=== PATIENT | female | born 1930 | race Caucasian/White ===

== ENCOUNTER 2017-01-01 01:31 | Observation (INO) | payer MEDICARE, BC ==
[2017-01-01] MEDS ORDERED: ONDANSETRON HCL/PF 2 MG/ML VIAL IV ONE ×2 (01:58→02:49)
[2017-01-01] MEDS ORDERED: fentaNYL CITRATE/PF 50 MCG/ML AMPUL ONE (01:58)
[2017-01-01] MEDS ORDERED: fentaNYL CITRATE/PF 50 MCG/ML AMPUL IV ONE (01:58)
[2017-01-01] MEDS ORDERED: ONDANSETRON HCL/PF 2 MG/ML VIAL ONE ×2 (01:59→02:53)
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
--- OUTSIDE RECORDS SUMMARY | 2017-01-01 02:41 | XMS REPORT | Continuity of Care Document ---
:1930 Author Organization [facility] ([place]) Address [address] [place] [address] Phone [phone] Care Team Providers Name Role Phone Jose C Edouard Primary Care Provider [phone] Source Comments This disclosure is being made pursuant to the Care Everywhere program, applicable federal and state laws, and may not contain all informaitonavailable regarding this patient.[facility] ([place]) Active Allergies and Adverse Reactions Allergen Noted Date Severity Reactions Comments Sulfadoxine Urticaria (Hives) Current Medications Prescription Sig. Disp. Refills Start Date End Date Status ASPIRIN (ASPIR-81 PO) take 81 mg by Active mouth. MULTIVITS W-FE,OTHER take by mouth. Active MIN (CENTRUM PO) VALSARTAN (DIOVAN PO) take by mouth. Active TRAZODONE HCL take 100 mg by Active (TRAZODONE PO) mouth. glyBURIDE (DIABETA) 5 take 5 mg by mouth Active mg tablet every morning with breakfast. metFORMIN take 850 mg by Active (GLUCOPHAGE) 850 mg mouth 2 times daily tablet with meals. Additional 500 mg every evening PARoxetine (PAXIL) 10 take 10 mg by mouth Active mg tablet daily. simvastatin (ZOCOR) take 10 mg by mouth Active 10 mg tablet every evening. LEVOFLOXACIN take by mouth. Active (LEVAQUIN PO) ALBUTEROL INH use by inhalation. Active estradiol (VAGIFEM) insert 25 mcg Active 25 mcg vaginal insert vaginally daily. albuterol-ipratropium use 2 Puffs by 1 Inhaler 0 07/14/2009 Active (COMBIVENT) 18-103 inhalation every 6 mcg/Actuation inhaler hours. Indications: shortness of breath Active Problems Problem Noted Date Diabetes mellitus 07/23/2009 DONNA (obstructive sleep apnea) 07/23/2009 Overview: Intolerant to CPAP Morbid obesity 07/23/2009 HTN (hypertension) 07/23/2009 Hyperlipemia 07/23/2009 S/P EZEQUIEL (total abdominal hysterectomy) 07/23/2009 Degenerative arthropathy 07/23/2009 Former smoker 07/23/2009 Depression with anxiety 07/23/2009 Overview: On paxil Resolved Problems Problem Noted Date Resolved Date Pain in joint, shoulder region 03/20/2006 07/23/2009 Pain in joint, pelvic region and thigh 03/20/2006 07/23/2009 Social History Tobacco Use Types Packs/Day Years Used Date Former Smoker Comments:quit > 40 yrs ago Alcohol Use Drinks/Week oz/Week Comments No Last Filed Vital Signs Vital Sign Reading Time Taken Blood Pressure 178/72 09/08/2009 11:23 AM MEAL ATTENDANT Pulse 72 09/08/2009 11:23 AM MEAL ATTENDANT Temperature 36.9 C (98.4 F) 09/08/2009 11:23 AM MEAL ATTENDANT Respiratory Rate 16 09/08/2009 11:23 AM MEAL ATTENDANT Height 1.397 m (4' 7") 09/08/2009 11:23 AM MEAL ATTENDANT Weight 91.627 kg (202 lb) 09/08/2009 11:23 AM MEAL ATTENDANT Body Mass Index 46.95 09/08/2009 11:23 AM MEAL ATTENDANT Oxygen Saturation 97% 07/22/2009 2:02 PM CDT Plan of Care Health Maintenance Due Date Last Done Comments Hepatitis B Vaccine (1 of 3 - Primary Series) 1930 Tdap Vaccine 1941 DIABETIC: Cholesterol 1949 Diabetic: Hdl 1949 DIABETIC: Hemoglobin A1C 1949 Diabetic: Ldl 1949 DIABETIC: Microalbumin 1949 DIABETIC: Triglycerides 1949 Td Vaccine 1948 Colonoscopy 02/18/1981 Zoster Vaccine 1991 Osteoporosis Screening (DXA Bone Density) 02/20/1996 Pneumococcal Vaccine (1 of 2 - PCV13) 02/20/1996 DIABETIC: Foot Exam 03/29/2011 DIABETIC: Retinal Eye Exam 03/29/2011 Influenza Vaccine: Seasonal (#1) 05/16/2016 Results from Last 3 Months Not on file
--- OUTSIDE RECORDS SUMMARY | 2017-01-01 02:41 | XMS REPORT | Continuity of Care Document ---
:1930 Author Organization [facility] [place] [address] Care Team Providers Name Role Phone Jose C Edouard Primary Care Provider [phone] Source Comments This disclosure is being made pursuant to the [employer] program and maynot contain all information available regarding this patient.[facility] Active Allergies and Adverse Reactions Allergen Noted Date Severity Reactions Comments Sulfa Antibiotics 07/22/2014 High Hives Current Medications Be aware that medications may not be up to date as of this document. Alwaysverify current medications with the patient. Prescription Sig. Disp. Refills Start End Status Date Date albuterol (PROVENTIL Inhale into the Active HFA;VENTOLIN HFA) 108 lungs. 2 puffs 2 (90 BASE) MCG/ACT times per day and inhaler as needed, not to exceed 4 times per day aspirin 81 MG tablet Take 81 mg by Active mouth daily. Calcium Take by mouth Active Carbonate-Vitamin D daily. (CALCIUM 500 + D PO) vitamin D, Take by mouth Active cholecalciferol, daily. (VITAMIN D3) 1000 UNITS tablet vitamin B-12 Take by mouth. Active (CYANOCOBALAMIN) 1000 3 TABLETS PO DLY MCG tablet hydrochlorothiazide Take 25 mg by Active (HYDRODIURIL) 25 MG mouth daily. tablet Insulin Syringe-Needle uses 4 needles 06/09/20 Active U-100 31G X 5/16" 0.5 per day. dx 11 ML MISC 250.02 losartan (COZAAR) 100 Take 100 mg by Active MG tablet mouth daily. Multiple Take by mouth Active Vitamins-Minerals daily. (MULTIVITAMIN & MINERAL PO) traZODone (DESYREL) Take 100 mg by Active 100 MG tablet mouth daily. amLODIPine (NORVASC) 5 Take 1 tablet by 09/08/20 Active MG tablet mouth nightly. 14 escitalopram (LEXAPRO) Take 1 tablet by 10/19/19 Active 10 MG tablet mouth nightly. 13 lactulose (CHRONULAC) Take 15 mLs by 03/12/20 Active 10 GM/15ML solution mouth 2 (two) 15 times daily as needed. nortriptyline Take 1 capsule by 09/17/20 Active (PAMELOR) 10 MG mouth nightly. 14 capsule iron sucrose (VENOFER) Inject into the 06/29/20 Active 20 MG/ML injection vein daily. 5 15 DOSES OF IV IRON WITHIN 14 DAYS iron polysaccharides Take 1 capsule by 12/09/19 Active (FERREX 150) capsule mouth 2 (two) 15 times daily. albuterol (PROAIR HFA) Inhale 2 puffs 10/21/19 Active 108 (90 BASE) MCG/ACT into the lungs 4 12 inhaler (four) times daily as needed. Cholecalciferol Take 1 tablet by 08/28/20 Active (VITAMIN D3) 2000 mouth daily. 13 UNITS TABS zolpidem (AMBIEN) 10 Take 1 tablet by 01/25/20 Active MG tablet mouth nightly as 12 needed. Unclassified (UNABLE nightly. CPAP Active TO FIND) omeprazole (PRILOSEC) Take 1 capsule by 90 capsule 4 08/25/20 Active 40 MG capsule mouth every 15 morning before breakfast. B-D UF III MINI PEN USE 4 TIMES 150 each 11 11/29/19 Active NEEDLES 31G X 5 MM DAILY 16 MISC glucose blood (RELION relion prime test 100 each 09/14/20 Active PRIME TEST) test strip strip tests 2 16 times per day dx e11.65 Blood Glucose 1 each by Does 1 Device 0 09/14/20 Active Monitoring Suppl not apply route 2 16 (RELION PRIME MONITOR) (two) times THOM daily. Use with relion prime test strips twice daily. Dx e11.65 FINGERSTIX LANCETS relion lancets 100 each 09/14/20 Active MISC tests twice per 16 day. Dx e11.65 atorvastatin (LIPITOR) TAKE ONE TABLET 90 tablet 1 11/17/19 Active 40 MG tablet BY MOUTH ONCE 17 DAILY metFORMIN XR Take 1 tablet by 90 tablet 1 12/16/19 Active (GLUCOPHAGE-XR) 500 MG mouth daily. 17 24 hr tablet metFORMIN (GLUCOPHAGE) Take 1 tablet by 180 tablet 1 12/16/19 Active 850 MG tablet mouth 2 (two) 17 times daily. Blood Glucose Testing twice 1 kit 0 12/22/19 Active Monitoring Suppl daily dx e11.65 17 (ROSALIO CONTOUR NEXT MONITOR) w/Device KIT glucose blood (ROSALIO Contour next test 125 each 11 12/22/19 Active CONTOUR TEST) test strips testing 17 strip twice daily dx e11.65 Exenatide ER Inject 2 mg into 4 each 5 12/29/19 Active (BYDUREON) 2 MG the skin every 7 17 injection days. insulin NPH (HUMULIN N Injects 18 units 18 mL 5 12/29/19 Active KWIKPEN) 100 UNIT/ML in am and 45 at 17 SUPN injection - pen at bedtime dx 11.22 metFORMIN TAKE ONE TABLET 90 tablet 1 11/13/19 Discontinued (GLUCOPHAGE-XR) 500 MG BY MOUTH ONCE 16 017 24 hr tablet DAILY metFORMIN (GLUCOPHAGE) TAKE ONE TABLET 180 tablet 1 01/18/20 Discontinued 850 MG tablet BY MOUTH TWICE 16 017 DAILY BYETTA 5 MCG PEN 5 INJECT 5MCG 1.2 mL 5 09/26/20 Discontinued MCG/0.02ML injection SUBCUTANEOUSLY 16 017 BEFORE MORNING AND EVENING MEALS insulin NPH (HUMULIN N Injects 18 units 18 mL 5 10/18/19 Discontinued KWIKPEN) 100 UNIT/ML in am and 40 at 17 017 SUPN injection - pen at bedtime dx 11.22 Active Problems Problem Noted Date Type 2 diabetes mellitus with stage 3 chronic kidney disease, with 12/28/2016 long-term current use of insulin (HCC) Type 2 diabetes, controlled, with neuropathy (HCC) 12/29/2015 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) 10/05/2011 Overview: Overview: CAITLIN MARSH MD Morbid obesity (HCC) 08/27/2009 Overview: Overview: ROB UNDERWOOD CNP Mixed hyperlipidemia 06/16/2009 Overview: Overview: CAITLIN MARSH MD Essential hypertension 07/29/2005 Overview: Overview: TESSA MARTINEZ Most Recent Encounters Date Type Specialty Providers Description 12/28/2016 Office Visit Endocrinology Caitlin Marsh MD Type 2 diabetes mellitus with stage 3 chronic kidney disease, with long-term current use of insulin (HCC) (Primary Dx); Type 2 diabetes, controlled, with neuropathy (HCC); Morbid obesity, unspecifiedobesity type (HCC); Essential hypertension; Mixed hyperlipidemia 12/27/2016 Abstract Endocrinology Carolina Griffin RN 12/26/2016 Refill Family Medicine Chiara Edouard RN 12/21/2016 Ophth Exam Ophthalmology Gregory Gentile MD Type 2 diabetes mellitus without complication, with long-term current use of insulin (HCC) (Primary Dx); Pseudophakia; Myopia, bilateral; Astigmatism, bilateral 12/21/2016 Refill Endocrinology Carolina Griffin RN 12/15/2016 Refill Endocrinology Meliza Amezcua LPN 11/17/2016 Refill Endocrinology Mitzy Rankin NP 10/18/2016 Refill Endocrinology Carolina Griffin RN Immunizations Name Dates Previously Given Next Due INFLUENZA, INACTIVATED, QUADRIVALENT, 3 08/28/2015 YEARS AND older, single dose syringe/vial Influenza Split 08/13/2012,07/16/2011,08/11/2010 Pneumococcal Conjugate-13 07/22/2014 Pneumococcal Polysaccharide-23 10/16/2006 influenza Whole 07/22/2014 Social History Tobacco Use Types Packs/Day Years Used Date Former Smoker Smokeless Tobacco: Never Used Tobacco Cessation:Counseling Given: No Comments: Alcohol Use Drinks/Week oz/Week Comments Yes 0 Standard drinks or equivalent 0.0 Alcoholic Drinks/day: CURRENT ALCOHOL USER Last Filed Vital Signs Vital Sign Reading Time Taken Blood Pressure 134/56 12/28/2016 9:56 AM CDT Pulse 82 12/28/2016 9:56 AM CDT Temperature 36.2 C (97.1 F) 08/25/2015 10:10 AM NUTRITION PARTNER Respiratory Rate 12 08/25/2015 10:10 AM NUTRITION PARTNER Height 1.397 m (4' 7") 12/28/2016 9:56 AM CDT Weight 98.431 kg (217 lb) 12/28/2016 9:56 AM CDT Body Mass Index 50.44 12/28/2016 9:56 AM CDT Oxygen Saturation - - Plan of Care Patient Goal Type Goal Blood Pressure Blood Pressure below 140/90 Result Component HEMOGLOBIN A1C below 7.0 Date Type Specialty Providers Description 04/12/2017 Appointment Endocrinology Mitzy Rankin, SKATE BOARDER [address] [place] [address] [phone] (Fax) 12/22/2017 Appointment Ophthalmology Gregory Gentile MD [address] [place] [address] [phone] (Fax) Health Maintenance Due Date Last Done Comments Foot Exam 1941 Tetanus/Pertussis (1 - Tdap) 1950 Well Adult Visit 1981 Zoster Vaccine 60+ 1991 Bone Density 02/20/1996 Influenza Immunization (#1) 2016 08/28/2015, Additional history exists 07/22/2014, 08/13/2012 LAB-HgA1C 06/23/2017 12/21/2016, Additional history exists 11/07/2016, 06/21/2016 Eye (Ophthalmology) Exam 12/21/2017 12/21/2016, Additional history exists 12/21/2016, 12/21/2016 Lab-Lipids 12/21/2017 12/21/2016, 06/23/2015, 11/06/2013 Lab-Urine Microalbumin 12/21/2017 12/21/2016, 06/23/2015, 11/06/2013 Pneumococcal Low/Medium Risk Completed 07/22/2014, 65+ 10/16/2006 Results from Last 3 Months TSH (12/21/2016) Component Value Range TSH 4.11 Hemoglobin A1c (12/21/2016)Only the most recent of2 resultswithin the time period is included. Component Value Range Hemoglobin A1C 6.7 % Vitamin B12 (12/21/2016) Component Value Range Vitamin B-12 771.6 Lipid panel (12/21/2016) Component Value Range Triglycerides 104 mg/dL HDL 47 mg/dL LDL 55 mg/dL Basic metabolic panel (12/21/2016) Component Value Range eGFR, non- 41 Calcium 9.6 mg/dL Potassium, Blood 4.6 mmol/L Microalbumin / creatinine urine ratio (12/21/2016) Component Value Range Microalbumin/Creat Ratio 115.1 Creatinine, Blood (12/21/2016) Component Value Range Creatinine, Serum 1.2 mg/dL
[2017-01-01] MEDS ORDERED: HYDROmorphone HCL 1 MG/ML DISP.SYRIN IV ONE (02:50)
[2017-01-01] MEDS ORDERED: HYDROmorphone HCL 1 MG/ML DISP.SYRIN ONE (02:53)
[2017-01-01 03:04] LABS: Hematocrit 31.8 % (37.0-47.0); Hemoglobin 9.8 gm/dL (12.5-16.0); Mean Cell Volume 94.9 fl (78-100); Mean Corpuscular Hemoglobin 29.3 pg (27-31); Mean Corpuscular Hgb Conc 30.8 g/dl (32-36); Mean Platelet Volume 8.6 fl (6.0-9.5); Neutrophil # 6.3 K/mm3 (1.3-6.0); Neutrophil % 75.5 % (42-75.0); Platelet Count 259 K/mm3 (150-450); Red Blood Count 3.35 M/mm3 (4.2-5.4); White Blood Count 8.3 K/mm3 (4.0-10.5)
[2017-01-01 03:13] LABS: Prothrombin Time (Patient) 10.7 Seconds (9.4-11.4)
[2017-01-01 03:17] LABS: Albumin * 3.5 gm/dl (3.4-5.0); Anion Gap 14.6 mmol/L (6.8-13.8); BUN/Creatinine Ratio 19.2 (9.0-21.6); Bilirubin, Total 0.3 mg/dL (0.0-1.1); Ca. Corrected For Albumin 8.5 mg/dL (8.4-10.2); Calcium * 8.4 mg/dL (7.9-10.9); Carbon Dioxide 29.8 mmol/L (24-32.6); Potassium 4.4 mmol/L (3.4-4.6); Total Protein 7.1 gm/dL (6.2-8.2)
[2017-01-01 03:22] LABS: INR 1.03 INR (0.90-1.10)
--- OUTSIDE RECORDS SUMMARY | 2017-01-01 03:53 | XMS REPORT | Continuity of Care Document ---
:1930 Author Organization [facility] ([facility]) Address [address] [place] [address] Phone [phone] Care Team Providers Name Role Phone Jose C Edouard Primary Care Provider [phone] Source Comments This disclosure is being made pursuant to the Care Everywhere program, applicable federal and state laws, and may not contain all informaitonavailable regarding this patient.[facility] ([facility]) Active Allergies and Adverse Reactions Allergen Noted [...] Taken Blood Pressure 178/72 09/08/2009 11:23 AM COMMISSION SALES ASSOCIATE Pulse 72 09/08/2009 11:23 AM COMMISSION SALES ASSOCIATE Temperature 36.9 C (98.4 F) 09/08/2009 11:23 AM COMMISSION SALES ASSOCIATE Respiratory Rate 16 09/08/2009 11:23 AM COMMISSION SALES ASSOCIATE Height 1.397 m (4' 7") 09/08/2009 11:23 AM COMMISSION SALES ASSOCIATE Weight 91.627 kg (202 lb) 09/08/2009 11:23 AM COMMISSION SALES ASSOCIATE Body Mass Index 46.95 09/08/2009 11:23 AM COMMISSION SALES ASSOCIATE Oxygen Saturation 97% 07/22/2009 2:02 PM CDT [...]
--- OUTSIDE RECORDS SUMMARY | 2017-01-01 03:53 | XMS REPORT | Continuity of Care Document ---
:1930 Author Organization [facility] Address [place] [address] Care Team Providers Name Role Phone Jose C Edouard Primary Care Provider [phone] Source Comments This disclosure is being made pursuant to the [employer] program and maynot contain all information available regarding this patient.[facility] Active Allergies and Adverse Reactions Allergen Noted [...] 36.2 C (97.1 F) 08/25/2015 10:10 AM MOTION PICTURE NARRATOR Respiratory Rate 12 08/25/2015 10:10 AM MOTION PICTURE NARRATOR Height 1.397 m (4' 7") 12/28/2016 9:56 AM CDT Weight 98.431 kg (217 lb) 12/28/2016 9:56 AM CDT Body Mass Index 50.44 12/28/2016 9:56 AM CDT Oxygen Saturation - - Plan of Care Patient Goal Type Goal Blood Pressure Blood Pressure below 140/90 Result Component HEMOGLOBIN A1C below 7.0 Date Type Specialty Providers Description 04/12/2017 Appointment Endocrinology Mitzy Rankin, [employer] [address] [place] [address] [phone] (Fax) 12/22/2017 Appointment Ophthalmology Gregory Gentile MD [address] [place] [address] [phone] (Fax) Health Maintenance Due Date Last Done [...]
[2017-01-01] MEDS ORDERED: ONDANSETRON HCL/PF 2 MG/ML VIAL IV PRN (04:57)
[2017-01-01] MEDS ORDERED: ZOLPIDEM TARTRATE 10 MG TABLET PO PRN (04:58)
--- NOTE | 2017-01-01 05:24 | HP ---
Chief Complaint - Chief Complaint Date of Service: 01/01/17 Time of Service: 05:13 Chief Complaint: left shoulder pain History of Present Illness: 86 years old female adm to the hospital from ER after sustaining a fall resulting in Left humerus fracture seen on X-Ray in ER. Pt stated while standing getting ready for bed, in the process of putting on her oxygen she felt dizzy. She told her that she was dizzy and felt like she was about to fall. pt fell between bedroom doors at home injuring her left shoulder. She denies hitting her head, LOC, blurred vision, headache, palpitation and shortness of breath before and after incident. EMS was called and she was taken to [facility] ER. pt stated she would occasionally use a cane to ambulate when she is outside. PMH significant for hypertension, diabetes, hyperlipidemia and COPD ( uses oxygen 2L at home) plan o care discussed with pt she verbalized understanding and agree. - Patient's Past Medical History Patient History - Medical: Arthritis, Diabetes Type 2 Insulin Dependent, Osteoarthritis, Renal Disease, Other - DJD Patient History - Cardiac/Respiratory: COPD, Hypertension, Hyperlipidemia, Home O2 Use - 2L nasal cannula Patient History - Cancer: No Hx of Cancer Patient History - Surgical Procedures: Colonoscopy, Hysterectomy, Total Hip Replacement - right hip, Total Knee Replacement - Bilateral knee replacement Patient History - Other: None - Family History Mother Family History - Medical: , No pertinent hx Family History - Cardiac/Respiratory: Myocardial Infarction Family History - Cancer: No pertinent family hx Father Family History - Medical: , Diabetes Type 2 Insulin Dependent Family History - Cardiac/Respiratory: Myocardial Infarction Family History - Cancer: No pertinent family hx Brother Family History - Medical: , No pertinent hx Family History - Cardiac/Respiratory: No pertinent hx Family History - Cancer: Brain - Social History Living Situations: spouse Abuse History: No History of abuse Psych History: Hx of Anxiety Smoking Status: Former smoker Have you smoked in the past 12 months: No Do you dip or chew tobacco: No Alcohol Use: none Drug Use: none - Immunizations Immunizations Up to Date: Yes Hx Pneumococcal Vaccination: No History of Influenza Vaccine: No Review Of Systems (GEN) - Review of Systems Generalized/Overall Review: Present: No Symptoms Reported EENTM: Present: No Symptoms Reported Respiratory: Present: No Symptoms Reported Cardiac: Present: No Symptoms Reported Abdominal: Present: No Symptoms Reported Genitourinary: Present: No Symptoms Reported Musculoskeletal: Present: Joint Pain - left arm and shoulder Neurological: Present: No Symptoms Reported Skin: Present: No Symptoms Reported Endocrine: Present: No Symptoms Reported Immunizations: IMMUNIZATION HX Immunizations Up to Date Yes History of Influenza Vaccine No Hx Pneumococcal Vaccination No Allergies/Adverse Reactions: Allergies Allergy/AdvReac Type Severity Reaction Status Date / Time Sulfa (Sulfonamide Allergy Verified 10/10/16 15:43 Antibiotics) Home Medications: HOME MEDICATIONS Aspirin [Aspirin Enteric Coated] 81 mg PO DAILY 01/23/14 [Last Taken Unknown] Ca/D3/Mag Ox/Zinc/Bus Person/Harinder/Bor [Caltrate 600+D Plus Tab Chew] 1 each PO DAILY [Last Taken Unknown] Cholecalciferol (Vitamin D3) [Vitamin D3] 2,000 unit PO DAILY 01/23/14 [Last Taken Unknown] Cyanocobalamin [Vitamin B-12] 3,000 mcg PO DAILY 01/23/14 [Last Taken Unknown] Escitalopram Oxalate [Lexapro] 10 mg PO DAILY 01/23/14 [Last Taken Unknown] Hydrochlorothiazide 25 mg PO DAILY 01/23/14 [Last Taken Unknown] Losartan Potassium 100 mg PO DAILY 01/23/14 [Last Taken Unknown] Albuterol Sulfate [Proventil Hfa] 6.7 gm IH BID 11/28/14 [Last Taken Unknown] Insulin NPH Human Isophane [Humulin N Kwikpen] 18 unit SQ QAM 11/28/14 [Last Taken Unknown] Insulin NPH Human Isophane [Humulin N Kwikpen] 40 unit SQ HS 11/28/14 [Last Taken Unknown] Multivitamin [Multi Vitamin Daily] 1 each PO QDIPM 11/28/14 [Last Taken Unknown] Albuterol Sulfate [Albuterol Sulfate 0.63 MG/3ML] 0.63 mg IH Q4H PRN 10/10/16 [ Last Taken Unknown] Iron Aspgly&Ps/C/B12/FA/Ca/Suc [Ferrex 150 Forte Plus Capsule] 1 each PO BID [Last Taken Unknown] metFORMIN HCL [Glucophage] 850 mg PO BID 10/10/16 [Last Taken Unknown] Atorvastatin Calcium [Lipitor] 40 mg PO ONCE 01/01/17 [Last Taken Unknown] Exenatide [Byetta] 5 mcg SQ BID 01/01/17 [Last Taken Unknown] Lactulose [Enulose] 15 ml PO BID 01/01/17 [Last Taken Unknown] Nortriptyline HCl [Pamelor] 10 mg PO HS 01/01/17 [Last Taken Unknown] Zolpidem Tartrate 10 mg PO HS PRN 01/01/17 [Last Taken Unknown] amLODIPine BESYLATE [Norvasc] 5 mg PO HS 01/01/17 [Last Taken Unknown] traZODone HCL [Desyrel] 100 mg PO HS 01/01/17 [Last Taken Unknown] Exam - Exam Vital Signs: Vital Signs - Last Taken Temp 36.8 C 01/01/17 04:04 Pulse 97 01/01/17 04:04 Resp 18 01/01/17 04:04 BP 101/68 01/01/17 04:04 Pulse Ox 94 01/01/17 04:04 Constitutional: Present: Alert, Oriented x3, Cooperative, No distress, Elderly, Morbidly obese ENT Exam: Present: moist mucous membranes Eye Exam: bilateral eye: PERRL Neck: Present: full range of motion Back Exam: Present: normal inspection Breasts: Present: Exam deferred Respiratory: Present: chest non-tender, normal breath sounds, no respiratory distress, decreased breath sounds Cardiovascular/Chest: Present: normal peripheral pulses, regular rate, rhythm, no chest tenderness, no edema Peripheral Pulses: dorsalis-pedis (R): 3+, dorsalis-pedis (L): 3+, radial (R): 3 +, radial (L): 3+ Abdomen: Present: Normal bowel sounds, soft, nontender, nondistended, no rebound tenderness /Rectal: Present: Exam deferred Extremity: Present: normal inspection, no pedal edema, normal capillary refill, other - Left arm/shoulder limited range of motion Skin Exam: Present: normal color, warm/dry, no cyanosis Neurologic: Present: oriented x 3, abnormal gait Appearance: Present: appropriate appearance Eye contact: Present: cooperative, good eye contact Thoughts: Present: normal thought pattern Diagnostic Studies: Laboratory Results WBC 8.3 K/mm3 (4.0-10.5) 01/01/17 03:00 RBC 3.35 M/mm3 (4.2-5.4) L 01/01/17 03:00 Hgb 9.8 gm/dL (12.5-16.0) L 01/01/17 03:00 Hct 31.8 % (37.0-47.0) L 01/01/17 03:00 MCV 94.9 fl (78-100) 01/01/17 03:00 MCH 29.3 pg (27-31) 01/01/17 03:00 MCHC 30.8 g/dl (32-36) L 01/01/17 03:00 RDW 14.0 % (11.5-14.0) 01/01/17 03:00 Plt Count 259 K/mm3 (150-450) 01/01/17 03:00 MPV 8.6 fl (6.0-9.5) 01/01/17 03:00 Immature Gran % (Auto) 0.50 % (0.001-0.429) H 01/01/17 03:00 Immature Gran # (Auto) 0.04 K/mm3 (0.000-0.0310) H 01/01/17 03:00 Neutrophils % 75.5 % (42-75.0) H 01/01/17 03:00 Lymphocytes % 16.3 % (20-51) L 01/01/17 03:00 Monocytes % 5.7 % (0.0-9) 01/01/17 03:00 Eosinophils % 1.8 % (0.0-3.0) 01/01/17 03:00 Basophils % 0.2 % (0.0-1.0) 01/01/17 03:00 Nucleated RBC % 0.0 k/mm3 (0-1) 01/01/17 03:00 Neutrophils # 6.3 K/mm3 (1.3-6.0) H 01/01/17 03:00 Lymphocytes # 1.4 k/mm3 (1.5-3.5) L 01/01/17 03:00 Monocytes # 0.5 k/mm3 (0.0-1.0) 01/01/17 03:00 Eosinophils # 0.2 k/mm3 (0.0-0.7) 01/01/17 03:00 Absolute Basophils 0.0 k/mm3 (0.0-0.1) 01/01/17 03:00 PT 10.7 Seconds (9.4-11.4) 01/01/17 03:00 INR (Anticoag Therapy) 1.03 INR (0.90-1.10) 01/01/17 03:00 Sodium 141 mmol/L (132-142) 01/01/17 03:00 Plasma Sodium 142 mmol/L (130-142) 01/01/17 03:00 Potassium 4.4 mmol/L (3.4-4.6) 01/01/17 03:00 Chloride 101 mmol/L (97-106) 01/01/17 03:00 Carbon Dioxide 29.8 mmol/L (24-32.6) 01/01/17 03:00 Anion Gap 14.6 mmol/L (6.8-13.8) H 01/01/17 03:00 BUN 23 mg/dL (3-23) 01/01/17 03:00 Creatinine 1.20 mg/dL (0.4-1.4) 01/01/17 03:00 Est GFR (Non-Af Amer) 45 mL/min (60-130) L 01/01/17 03:00 BUN/Creatinine Ratio 19.2 (9.0-21.6) 01/01/17 03:00 Random Glucose 154 mg/dL (70-110) H 01/01/17 03:00 Calcium 8.4 mg/dL (7.9-10.9) 01/01/17 03:00 Calcium Adj for Albumin 8.5 mg/dL (8.4-10.2) 01/01/17 03:00 Total Bilirubin 0.3 mg/dL (0.0-1.1) 01/01/17 03:00 AST 19 U/L (0-48) 01/01/17 03:00 ALT 28 U/L (19-67) 01/01/17 03:00 Alkaline Phosphatase 66 U/L (50-170) 01/01/17 03:00 Total Protein 7.1 gm/dL (6.2-8.2) 01/01/17 03:00 Albumin 3.5 gm/dl (3.4-5.0) 01/01/17 03:00 Assessment/Plan - Narrative Narrative: Acute left humerus fracture: secondary to fall sustained at home and hitting he head and shoulder. Ortho consulted XRay shoulder: left humerus fracture displaced Left Posterior splint Dilaudid for pain control CT head no acute intracranial abnormality PT/OT evaluation and treatment Orthostatic vital x1 Hypertension- stable on adm BP 101/68 May resume home dose of medications Monitor vital signs Diabetes Accu-check AC+HS Resume home dose of medications consistent car diet COPD- stable Resume home medications and supplemented oxygen, pt uses home oxygen 2L nasal cannula Code status: DNR VTE ppx: SCD and ambulate Anticipate discharge 0-2 days and follow up with ortho service Time 35 minutes - Assessment/Plan (1) Left humeral fracture Problem: Acute Qualifiers: Encounter type: initial encounter Humerus Location: proximal Fracture type: closed Fracture morphology: unspecified fracture morphology Qualified Code(s): S42.202A - Unspecified fracture of upper end of left humerus, initial encounter for closed fracture (2) COPD (chronic obstructive pulmonary disease) Problem: Chronic (3) Diabetes Problem: Chronic (4) Hypertension Problem: Chronic
[2017-01-01] MEDS: HYDROmorphone HCL 1 MG/ML DISP.SYRIN IV PRN ×3 (05:53→16:50)
[2017-01-01] MEDS ORDERED: ALBUTEROL SULFATE 2.5 MG/3 ML VIAL.NEB IH SCH (07:32)
[2017-01-01] MEDS ORDERED: ALBUTEROL SULFATE 200 PUFF INHALER IH SCH (09:00)
[2017-01-01] MEDS ORDERED: ATORVASTATIN CALCIUM 40 MG TABLET PO SCH (09:00)
[2017-01-01] MEDS ORDERED: CHOLECALCIFEROL 1,000 UNIT CAPSULE PO SCH ×2 (09:00→10:00)
[2017-01-01] MEDS ORDERED: Exenatide [Byetta] 5 MCG SQ SCH (09:00)
[2017-01-01] MEDS ORDERED: INSULIN NPH HUMAN ISOPHANE 100 UNITS/ML VIAL SC SCH ×3 (09:00→21:00)
[2017-01-01] MEDS ORDERED: IRON POLYSACCHARIDE COMPLEX 1 CAP CAPSULE PO SCH ×2 (09:00→10:00)
[2017-01-01] MEDS ORDERED: ROSUVASTATIN CALCIUM 10 MG TABLET PO SCH (09:00)
[2017-01-01] MEDS ORDERED: LOSARTAN POTASSIUM 50 MG TABLET PO SCH ×2 (09:00→10:00)
[2017-01-01] MEDS ORDERED: LACTULOSE 10 G/15 ML BTL PO SCH (09:00)
[2017-01-01] MEDS ORDERED: ASPIRIN 81 MG TABLET.DR PO SCH ×2 (09:00→10:00)
[2017-01-01] MEDS ORDERED: CYANOCOBALAMIN 1,000 MCG TABLET PO SCH ×2 (09:00→10:00)
[2017-01-01] MEDS ORDERED: ESCITALOPRAM OXALATE 10 MG TAB PO SCH ×2 (09:00→10:00)
[2017-01-01] MEDS ORDERED: CALCIUM CARBONATE/VITAMIN D3 1 TAB TABLET PO SCH ×2 (09:00→10:00)
[2017-01-01] MEDS ORDERED: HYDROCHLOROTHIAZIDE 25 MG TABLET PO SCH ×2 (09:00→10:00)
[2017-01-01] MEDS ORDERED: MULTIVIT WITH IRON-MINERALS 1 TAB TABLET PO SCH (10:00)
[2017-01-01] MEDS ORDERED: ACETAMINOPHEN 325 MG TABLET PO PRN (10:22)
[2017-01-01] MEDS ORDERED: traMADol HCL 50 MG TABLET PO PRN (10:23)
[2017-01-01] MEDS ORDERED: SENNOSIDES/DOCUSATE SODIUM 1 TAB TABLET PO PRN (10:24)
[2017-01-01] MEDS ORDERED: INSULIN LISPRO 100 UNITS/ML VIAL SC SCH (12:00)
[2017-01-01] MEDS ORDERED: DEXAMETHASONE SOD PHOSPHATE 10 MG/ML VIAL IV ONE (12:11)
--- NOTE | 2017-01-01 14:18 | CONS ---
[facility] - General Date of Service: 01/01/17 Narrative: Mrs. Garcia is a 86-year-old female who was getting ready for bed when she got dizzy and fell striking her left shoulder. She is brought to emergency department found to have a displaced left surgical neck fracture with some apparent comminution of the humeral head. She has notable displacement. Secondary to her medical conditions as well as for pain control she was admitted for observation. She is resting in bed now with mild to moderate discomfort. She denies any loss of consciousness or prior shoulder injuries. She is right-handed. She lives at home with her . She has a notable history of complications with anesthesia related to a prior colonoscopy which makes her not an ideal surgical candidate. In discussing with Dr. Rodarte there is some significant concerns with having her undergo any type of anesthesia for surgical procedure. Source: patient, family, RN/MD - History of Present Illness Timing/Duration: 24 hours Severity: moderate Modifying Factors - (Worsens): Reports: movement Modifying Factors - (Improves): Reports: immobilization Associated Symptoms: denies symptoms Allergies/Adverse Reactions: Allergies Sulfa (Sulfonamide Antibiotics) Allergy (Verified 10/10/16 15:43) Home Medications: Home Medications Medication Instructions Recorded Last Taken Aspirin [Aspirin Enteric Coated] 81 mg PO DAILY 01/23/14 Unknown Ca/D3/Mag Ox/Zinc/Cleaning Professional/Harinder/Bor 1 each PO DAILY 01/23/14 Unknown [Caltrate 600+D Plus Tab Chew] Cholecalciferol (Vitamin D3) 2,000 unit PO DAILY 01/23/14 Unknown [Vitamin D3] Cyanocobalamin [Vitamin B-12] 3,000 mcg PO DAILY 01/23/14 Unknown Escitalopram Oxalate [Lexapro] 10 mg PO DAILY 01/23/14 Unknown Hydrochlorothiazide 25 mg PO DAILY 01/23/14 Unknown Losartan Potassium 100 mg PO DAILY 01/23/14 Unknown Albuterol Sulfate [Proventil Hfa] 6.7 gm IH BID 11/28/14 Unknown Insulin NPH Human Isophane 18 unit SQ QAM 11/28/14 Unknown [Humulin N Kwikpen] Insulin NPH Human Isophane 40 unit SQ HS 11/28/14 Unknown [Humulin N Kwikpen] Multivitamin [Multi Vitamin Daily] 1 each PO QDIPM 11/28/14 Unknown Albuterol Sulfate [Albuterol 0.63 mg IH Q4H PRN 12/26/16 Unknown Sulfate 0.63 MG/3ML] Iron Aspgly&Ps/C/B12/FA/Ca/Suc 1 each PO BID 10/10/16 Unknown [Ferrex 150 Forte Plus Capsule] metFORMIN HCL [Glucophage] 850 mg PO BID 10/10/16 Unknown Atorvastatin Calcium [Lipitor] 40 mg PO ONCE 01/01/17 Unknown Exenatide [Byetta] 5 mcg SQ BID 01/01/17 Unknown Lactulose [Enulose] 15 ml PO BID 01/01/17 Unknown Nortriptyline HCl [Pamelor] 10 mg PO HS 01/01/17 Unknown Zolpidem Tartrate 10 mg PO HS PRN 01/01/17 Unknown amLODIPine BESYLATE [Norvasc] 5 mg PO HS 01/01/17 Unknown traZODone HCL [Desyrel] 100 mg PO HS 01/01/17 Unknown - Patient's Past Medical History Patient History - Medical: Arthritis, Diabetes Type 2 Insulin Dependent, Osteoarthritis, Renal Disease, Other - DJD Patient History - Cardiac/Respiratory: COPD, Hypertension, Hyperlipidemia, Home O2 Use - 2L nasal cannula Patient History - Cancer: No Hx of Cancer Patient History - Surgical Procedures: Colonoscopy, Hysterectomy, Total Hip Replacement - right hip, Total Knee Replacement - Bilateral knee replacement Patient History - Other: None - Family History Mother Family History - Medical: , No pertinent hx Family History - Cardiac/Respiratory: Myocardial Infarction Family History - Cancer: No pertinent family hx Father Family History - Medical: , Diabetes Type 2 Insulin Dependent Family History - Cardiac/Respiratory: Myocardial Infarction Family History - Cancer: No pertinent family hx Brother Family History - Medical: , No pertinent hx Family History - Cardiac/Respiratory: No pertinent hx Family History - Cancer: Brain - Social History Living Situations: spouse Abuse History: No History of abuse Psych History: Hx of Anxiety Smoking Status: Former smoker Have you smoked in the past 12 months: No Do you dip or chew tobacco: No Alcohol Use: none Drug Use: none - Immunizations Immunizations Up to Date: Yes Hx Pneumococcal Vaccination: No History of Influenza Vaccine: No Medications - Medications Current Medications: Current Medications Albuterol Sulfate (Albuterol Sulfate 2.5 Mg/3 Ml) 2.5 mg IH BIDRT [facility] Stop: 01/31/17 07:33 Last Admin: 01/01/17 09:10 Dose: 2.5 mg Aspirin (Aspirin Enteric Coated) 81 mg PO DAILY [facility] Stop: 01/31/17 09:01 Last Admin: 01/01/17 10:00 Dose: 81 mg Calcium/Vitamin D (Calcarb 600 With Vitamin D) 1 tab PO DAILY [facility] Stop: 01/31/17 09:01 Last Admin: 01/01/17 10:01 Dose: 1 tab Cholecalciferol (Vitamin D) 2,000 unit PO DAILY [facility] Stop: 01/31/17 09:01 Last Admin: 01/01/17 10:05 Dose: 2,000 unit Cyanocobalamin (Vitamin B-12) 3,000 mcg PO DAILY [facility] Stop: 01/31/17 09:01 Last Admin: 01/01/17 10:04 Dose: 3,000 mcg Escitalopram Oxalate (Lexapro) 10 mg PO DAILY [facility] Stop: 01/31/17 10:01 Last Admin: 01/01/17 10:03 Dose: 10 mg Hydrochlorothiazide (Hydrodiuril) 25 mg PO DAILY [facility] Stop: 01/31/17 09:01 Last Admin: 01/01/17 10:03 Dose: 25 mg Hydromorphone HCl (Dilaudid) 0.5 mg IV Q3H PRN PRN Reason: Pain Stop: 01/31/17 04:58 Last Admin: 01/01/17 09:17 Dose: 0.5 mg Insulin Human Lispro (Humalog) 0 units SC ACINS [facility] PRN Reason: Protocol Stop: 01/31/17 12:01 Last Admin: 01/01/17 12:02 Dose: 8 units Lactulose (Enulose) 10 g PO BID [facility] Stop: 01/31/17 09:01 Last Admin: 01/01/17 09:59 Dose: 10 g Losartan Potassium (Cozaar) 100 mg PO DAILY [facility] Stop: 01/31/17 09:01 Last Admin: 01/01/17 09:59 Dose: 100 mg Exenatide [Byetta] 5 (Mcg) 5 mcg SQ BID [facility] Stop: 01/31/17 09:01 Last Admin: 01/01/17 10:06 Dose: Not Given Tramadol HCl (Ultram) 50 mg PO Q4H PRN PRN Reason: Moderate Pain Stop: 01/31/17 10:31 Last Admin: 01/01/17 12:47 Dose: 50 mg Review of Systems - Review of Systems Generalized/Overall Review: Present: No Symptoms Reported Physical Examination - Exam Narrative: Left upper extremity: She is in a sling. Sensation is intact throughout the left upper extremity. She is a palpable radial pulse. She is able to move her fingers and wrist. She has a fairly large upper arm but no lacerations, ecchymosis, abrasions. She is no gross deformity but some of this is hidden by her soft tissues. She had pain with any upper arm motion. Vital Signs: Vital Signs - Last Taken Temp 36.8 C 01/01/17 11:13 Pulse 93 01/01/17 11:13 Resp 20 01/01/17 11:13 BP 134/72 01/01/17 11:13 Pulse Ox 93 01/01/17 11:13 O2 Oxygen Delivery Method Room Air Constitutional: Present: Alert, Oriented x3 - Results and Findings: Narrative: Left shoulder films: Displaced surgical neck fracture of the left upper humerus with possible comminution of the humeral head. The humeral head is in the joint however there is anterior displacement of the shaft - Assessments/Findings (1) Left humeral fracture Diagnosis(s): I discussed with the patient as well as her and family the nature of her injury. Based on her body habitus as well as the proximal nature of the fracture is to be somewhat difficult to stabilize nonsurgically. There is significant displacement and even with an attempted reduction I don't feel a splint or brace would add any significant stabilization. We discussed that without surgery she will likely have limited function above waist level however with surgery there is significant risk to her life and per Dr. Rodarte she does not feel she is a great surgical candidate. We discussed that if she is adamant about having surgery we may have to look into transferring her to a higher level care center due to her potential risks related to surgery. For this reason I am recommending nonsurgical treatment and from an orthopedic standpoint she is stable to be discharged home. I will see her back on . She's continue with her sling. Problem: Acute Qualifiers: Encounter type: initial encounter Humerus Location: proximal Fracture type: closed Fracture alignment: displaced
[2017-01-01 14:32] VITALS: BP 121/34
--- NOTE | 2017-01-01 15:45 | DS ---
<Andree Mitchell - Last Filed: 01/01/17 21:28> Disposition: Home self-care Condition: Fair Referrals: Jovani Calixto MD [Primary Care Provider] - Problem Oriented Discharge Instructions to Patient/Family: Humerus Fracture Treated With Immobilization, [id number], Shoulder Fracture (Proximal Humerus or Glenoid)-SportsMed Additional Patient Instructions (free text): Follow-up with Dr. Bauer on 01.05.2017. Please call patient's with time of appointment. Follow-up with PCP within 1-2 weeks. Follow up with Dr. Bauer on December at 2:45 pm. Follow up with Dr. London Gonzalez/[facility] on December @ 11:15 am Prescriptions (Any new or edited meds): Ondansetron [Zofran Odt] 4 mg PO Q6H PRN #20 tab PRN Reason: Nausea And Vomiting Sennosides/Docusate Sodium [Senokot-S] 1 tab PO TID PRN #1 bottle PRN Reason: Constipation traMADol HCL [Ultram] 50 mg PO Q6H PRN #25 tablet PRN Reason: Moderate Pain Complete Home Medications List: Complete Home Medication List: Aspirin [Aspirin Enteric Coated] 81 mg PO DAILY 01/23/14 Ca/D3/Mag Ox/Zinc/Orthotic Practitioner/Harinder/Bor [Caltrate 600+D Plus Tab Chew] 1 each PO DAILY Cholecalciferol (Vitamin D3) [Vitamin D3] 2,000 unit PO DAILY 01/23/14 Cyanocobalamin [Vitamin B-12] 3,000 mcg PO DAILY 01/23/14 Escitalopram Oxalate [Lexapro] 10 mg PO DAILY 01/23/14 Hydrochlorothiazide 25 mg PO DAILY 01/23/14 Losartan Potassium 100 mg PO DAILY 01/23/14 Albuterol Sulfate [Proventil Hfa] 6.7 gm IH BID 11/28/14 Insulin NPH Human Isophane [Humulin N Kwikpen] 18 unit SQ QAM 11/28/14 Insulin NPH Human Isophane [Humulin N Kwikpen] 40 unit SQ HS 11/28/14 Multivitamin [Multi-Vitamin Daily] 1 each PO QDIPM 11/28/14 Albuterol Sulfate [Albuterol Sulfate 0.63 MG/3ML] 0.63 mg IH Q4H PRN 10/10/16 Iron Aspgly&Ps/C/B12/FA/Ca/Suc [Ferrex 150 Forte Plus Capsule] 1 each PO BID metFORMIN HCL [Glucophage] 850 mg PO BID 10/10/16 Acetaminophen [Tylenol] 650 mg PO Q6H PRN #0 tablet 01/01/17 Atorvastatin Calcium [Lipitor] 40 mg PO ONCE 01/01/17 Exenatide [Byetta] 5 mcg SQ BID 01/01/17 Lactulose [Enulose] 15 ml PO BID 01/01/17 Nortriptyline HCl [Pamelor] 10 mg PO HS 01/01/17 Ondansetron [Zofran Odt] 4 mg PO Q6H PRN #20 tab 01/01/17 Sennosides/Docusate Sodium [Senokot-S] 1 tab PO TID PRN #1 bottle 01/01/17 Zolpidem Tartrate 10 mg PO HS PRN 01/01/17 amLODIPine BESYLATE [Norvasc] 5 mg PO HS 01/01/17 traMADol HCL [Ultram] 50 mg PO Q6H PRN #25 tablet 01/01/17 traZODone HCL [Desyrel] 100 mg PO HS 01/01/17 <Dixie Rodarte - Last Filed: 01/02/17 12:18> (1) Left humeral fracture Problem: Acute Qualifiers: Encounter type: initial encounter Humerus Location: proximal Fracture type: closed Fracture alignment: displaced Description of Stay: ADMISSION DATE: 01.01.2017 DISCHARGE DATE: 01.01.2017 ADMISSION HPI: 86 years old female adm to the hospital from ER after sustaining a fall resulting in Left humerus fracture seen on X-Ray in ER. Pt stated while standing getting ready for bed, in the process of putting on her oxygen she felt dizzy. She told her that she was dizzy and felt like she was about to fall. pt fell between bedroom doors at home injuring her left shoulder. She denies hitting her head, LOC, blurred vision, headache, palpitation and shortness of breath before and after incident. EMS was called and she was taken to [facility] ER. pt stated she would occasionally use a cane to ambulate when she is outside. PMH significant for hypertension, diabetes, hyperlipidemia and COPD ( uses oxygen 2L at home) plan o care discussed with pt she verbalized understanding and agree. HOSPITAL COURSE: Patient evaluated by Orthopedic Surgeon, Dr. Bauer, during her admission and per his consult note: I discussed with the patient as well as her and family the nature of her injury. Based on her body habitus as well as the proximal nature of the fracture is to be somewhat difficult to stabilize nonsurgically. There is significant displacement and even with an attempted reduction I don't feel a splint or brace would add any significant stabilization. We discussed that without surgery she will likely have limited function above waist level however with surgery there is significant risk to her life and per Dr. Rodarte she does not feel she is a great surgical candidate. We discussed that if she is adamant about having surgery we may have to look into transferring her to a higher level care center due to her potential risks related to surgery. For this reason I am recommending nonsurgical treatment and from an orthopedic standpoint she is stable to be discharged home. I will see her back on . She's continue with her sling. Patient discharged home and instructed to follow-up with both her PCP and with Dr. Bauer. Procedures Performed: none Results and Findings: Left shoulder films: Displaced surgical neck fracture of the left upper humerus with possible comminution of the humeral head. The humeral head is in the joint however there is anterior displacement of the shaft Discharge Disposition: Home self care Discharge Activity: Other - Activity per Dr. Bauer Discharge Diet: Resume usual diet
[2017-01-01] MEDS ORDERED: traZODone HCL 50 MG TABLET PO SCH (21:00)
[2017-01-01] MEDS ORDERED: amLODIPine BESYLATE 5 MG TABLET PO SCH (21:00)
[2017-01-01] MEDS ORDERED: NORTRIPTYLINE HCL 10 MG CAPSULE PO SCH (21:00)
[2017-01-02] MEDS ORDERED: ATORVASTATIN CALCIUM 40 MG TABLET PO SCH (09:00)
[2017-01-02] MEDS ORDERED: MULTIVIT WITH IRON-MINERALS 1 TAB TABLET PO SCH (09:00)
[2017-01-02] MEDS ORDERED: INSULIN NPH HUMAN ISOPHANE 100 UNITS/ML VIAL SC SCH (09:00)
== END 2017-01-01 18:47 | disposition home health service (06) ==
LOC: ER 01:31 → MS 03:16
PROVIDERS: ADMIT Nurse Practitioner; ATTEND Internal Medicine
DX: S42.212A Unspecified displaced fracture of surgical neck of left humerus, initial encounter for closed fracture (principal); W18.39XA Other fall on same level, initial encounter; Y92.013 Bedroom of single-family (private) house as the place of occurrence of the external cause; E11.9 Type 2 diabetes mellitus without complications; Z79.4 Long term (current) use of insulin; I10 Essential (primary) hypertension; N28.9 Disorder of kidney and ureter, unspecified; J44.9 Chronic obstructive pulmonary disease, unspecified; Z87.891 Personal history of nicotine dependence; M15.9 Polyosteoarthritis, unspecified
CPT/HCPCS: 36415; 70450; 73030; 80053; 85025; 85610; 94640; 96372; 96374; 96375; 96376; 99284; G0378

== ENCOUNTER 2017-09-11 19:03 | Emergency (ER) | payer MEDICARE, BC ==
--- NOTE | 2017-09-11 19:56 | ERNOTE ---
Medical Problem HPI - Narrative Date of Service: 09/11/17 - General Chief Complaint: Diabetes Related Problem Time Seen by Provider: 09/11/17 19:52 Source: patient, RN notes reviewed Exam Limitations: no limitations - Immun/Allergies/Home Medications Immunizations: IMMUNIZATION HX Immunizations Up to Date Yes History of Influenza Vaccine Yes Hx Pneumococcal Vaccination Yes Allergies/Adverse Reactions: Allergies Sulfa (Sulfonamide Antibiotics) Allergy (Verified 09/11/17 19:18) Home Medications: HOME MEDICATIONS Aspirin [Aspirin Enteric Coated] 81 mg PO DAILY 01/23/14 [Last Taken Unknown] Ca/D3/Mag Ox/Zinc/Cardiac Cath Lab Manager/Harinder/Bor [Caltrate 600+D Plus Tab Chew] 1 each PO DAILY [Last Taken Unknown] Cholecalciferol (Vitamin D3) [Vitamin D3] 2,000 unit PO DAILY 01/23/14 [Last Taken Unknown] Cyanocobalamin [Vitamin B-12] 3,000 mcg PO DAILY 01/23/14 [Last Taken Unknown] Escitalopram Oxalate [Lexapro] 10 mg PO DAILY 01/23/14 [Last Taken Unknown] Losartan Potassium 100 mg PO DAILY 01/23/14 [Last Taken Unknown] Albuterol Sulfate [Proventil Hfa] 6.7 gm IH BID 11/28/14 [Last Taken Unknown] Insulin NPH Human Isophane [Humulin N Kwikpen] 25 unit SQ QAM 11/28/14 [Last Taken Unknown] Insulin NPH Human Isophane [Humulin N Kwikpen] 45 unit SQ HS 11/28/14 [Last Taken Unknown] Multivitamin [Multi-Vitamin Daily] 1 each PO QDIPM 11/28/14 [Last Taken Unknown] Iron Aspgly,Ps/C/B12/FA/Ca/Suc [Ferrex 150 Forte Plus Capsule] 1 each PO BID [Last Taken Unknown] metFORMIN HCL [Glucophage] 500 mg PO BID 10/10/16 [Last Taken Unknown] Acetaminophen [Tylenol] 650 mg PO Q6H PRN #0 tablet 01/01/17 [Last Taken Unknown ] Atorvastatin Calcium [Lipitor] 40 mg PO ONCE 01/01/17 [Last Taken Unknown] Lactulose [Enulose] 15 ml PO BID 01/01/17 [Last Taken Unknown] Nortriptyline HCl [Pamelor] 10 mg PO HS 01/01/17 [Last Taken Unknown] Ondansetron [Zofran Odt] 4 mg PO Q6H PRN #20 tab 01/01/17 [Last Taken Unknown] Sennosides/Docusate Sodium [Senokot-S] 1 tab PO TID PRN #1 bottle 01/01/17 [ Last Taken Unknown] Zolpidem Tartrate 10 mg PO HS PRN 01/01/17 [Last Taken Unknown] amLODIPine BESYLATE [Norvasc] 5 mg PO HS 01/01/17 [Last Taken Unknown] traMADol HCL [Ultram] 50 mg PO Q6H PRN #25 tablet 01/01/17 [Last Taken Unknown] traZODone HCL [Desyrel] 100 mg PO HS 01/01/17 [Last Taken Unknown] Cephalexin 500 mg PO TID #30 tab 09/11/17 [Last Taken Unknown] - History of Present History Narrative: 87 year old female brought to the ED from home by her for elevated blood sugars. She sees her doctor that manages her diabetes in [place], [place] next week. She is supposed to start checking her blood sugars twice a day a few days prior to her appointment. Today she checked her blood glucose at 1730 and got a reading over 400. She reports being more thirsty than usual and having urinary frequency for the past couple of weeks. She has not had any recent illness. Date (Duration): 09/22/17 Time (Timing): 17:30 Review of Systems - Review of Systems Constitutional: Present: fatigue. Absent: recent illness, fever, chills EYE: Present: no symptoms reported ENT: Absent: nose congestion, sore throat Respiratory: Absent: shortness of breath, cough, wheezing Cardiology: Absent: chest pain, syncope Gastrointestinal/Abdominal: Absent: nausea, abdominal pain, eating less, drinking less Genitourinary: Present: frequency. Absent: pain, dysuria, hematuria Musculoskeletal: Present: muscle pain, joint pain - chronic Skin: Absent: rash, lesions, lumps Neurological: Absent: headache, dizziness/light-headedness, weakness Endocrine: Present: increased thirst, increased urine. Absent: unexplained weight loss Hematologic/Lymphatic: Absent: easy bruising, easy bleeding Psych: Present: no symptoms reported - Patient's Past Medical History Patient History - Medical: Arthritis, Diabetes Type 2 Insulin Dependent, Obesity , Osteoarthritis, Renal Disease Patient History - Cardiac/Respiratory: COPD, Hypertension, Hyperlipidemia, Home O2 Use Patient History - Cancer: No Hx of Cancer Patient History - Surgical Procedures: Colonoscopy, Hysterectomy, Total Hip Replacement, Total Knee Replacement Patient History - Other: None LMP (females 10-50): Menopausal - Family History Mother Family History - Medical: , No pertinent hx Family History - Cardiac/Respiratory: Myocardial Infarction Family History - Cancer: No pertinent family hx Father Family History - Medical: , Diabetes Type 2 Insulin Dependent Family History - Cardiac/Respiratory: Myocardial Infarction Family History - Cancer: No pertinent family hx Brother Family History - Medical: , No pertinent hx Family History - Cardiac/Respiratory: No pertinent hx Family History - Cancer: Brain - Social History Living Situations: spouse Abuse History: No History of abuse Psych History: Hx of Anxiety Smoking Status: Never smoker Alcohol Use: none Drug Use: none - Immunizations Immunizations Up to Date: Yes Hx Pneumococcal Vaccination: Yes History of Influenza Vaccine: Yes Physical Exam - Physical Exam General Appearance: Present: alert, no apparent distress, obese, other - Pleasant, appropriately dressed and groomed Head Exam: Present: normal inspection Eye Exam: Normal inspection: bilateral Ears, Nose, Throat: Present: normal ENT inspection, normal pharynx Neck: Present: normal inspection, nontender, supple Respiratory: Present: no respiratory distress, normal breath sounds, lungs clear , accessory muscle use - dyspneic with minimal exertion, on home O2, reports that her breathing is not worse than normal Cardiovascular/Chest: Present: regular rate, rhythm, no murmur Gastrointestinal/Abdominal: Present: nondistended, soft Extremity Exam: Present: normal inspection, non-tender Neurological Exam: Present: alert, oriented, normal mood/affect, no motor/ sensory deficits Skin Exam: Present: normal color, warm/dry ED Progress - Results and Orders Patient's Lab Results:: I have reviewed the patient's lab results. - Vital Signs Patient's Vital Signs:: I have reviewed the patient's vital signs. Vital Signs: Vital Signs 09/11/17 19:05 Temperature 37.0 C Pulse Rate 81 Respiratory 25 H Rate Blood Pressure 137/79 O2 Sat by Pulse 92 Oximetry - Progress/Reassessment Chief Complaint: Diabetes Related Problem Progress:: Improved Plan - Plan Plan: Blood glucose improved after 10 units of regular insulin given SC. UA indicates a probable UTI. This may be contributing to the elevated blood sugars. Will start on cephalexin. Patient to continue her current insulin dosing for now and contact her PCP tomorrow. Patient and in agreement with plan. Departure Clinical Impression: Hyperglycemia without ketosis Urinary tract infection Qualifiers: Urinary tract infection type: site unspecified Hematuria presence: without hematuria Qualified Code(s): N39.0 - Urinary tract infection, site not specified - Departure Disposition: Home Follow Up Needed Condition: Stable Instructions: Hyperglycemia, [id number] Additional Instructions: Continue your current medications Contact your doctor tomorrow about your blood sugar Continue checking your blood sugar Return as needed for worsening symptoms Prescriptions: Cephalexin 500 mg PO TID #30 tab
[2017-09-11] MEDS ORDERED: INSULIN REGULAR, HUMAN 100 UNITS/ML VIAL SC ONE (20:07)
[2017-09-11] MEDS ORDERED: INSULIN REGULAR, HUMAN 100 UNITS/ML VIAL ONE (20:22)
[2017-09-11 20:27] LABS: ALT 32 U/L (19-67); AST 19 U/L (0-48); Albumin * 3.7 gm/dl (3.4-5.0); Alkaline Phosphatase * 103 U/L (50-170); Anion Gap 12.8 mmol/L (6.8-13.8); BUN/Creatinine Ratio 18.8 (9.0-21.6); Bilirubin, Total 0.3 mg/dL (0.0-1.1); Blood Urea Nitrogen 34 mg/dL (3-23); Ca. Corrected For Albumin 9.1 mg/dL (8.4-10.2); Calcium * 9.2 mg/dL (7.9-10.9); Carbon Dioxide 33.9 mmol/L (24-32.6); Chloride 93 mmol/L (97-106); Glucose * 397 mg/dL (70-110); Potassium 4.7 mmol/L (3.4-4.6); Sodium 135 mmol/L (132-142); Total Protein 8.1 gm/dL (6.2-8.2)
[2017-09-11 20:31] LABS: Hematocrit 36.2 % (37.0-47.0); Hemoglobin 11.7 gm/dL (12.5-16.0); Mean Cell Volume 99.7 fl (78-100); Mean Corpuscular Hemoglobin 32.2 pg (27-31); Mean Corpuscular Hgb Conc 32.3 g/dl (32-36); Mean Platelet Volume 9.1 fl (6.0-9.5); Neutrophil # 4.6 K/mm3 (1.3-6.0); Neutrophil % 64.4 % (42-75.0); Platelet Count 295 K/mm3 (150-450); Red Blood Count 3.63 M/mm3 (4.2-5.4); Red Cell Distribution Width 16.2 % (11.5-14.0); White Blood Count 7.2 K/mm3 (4.0-10.5)
[2017-09-11 20:38] LABS: Urine Bilirubin Negative (NEGATIVE); Urine Blood Negative /ul (NEGATIVE); Urine Ketone Negative (NEGATIVE); Urine Protein Negative (NEGATIVE); Urine Urobilinogen Normal (NORMAL)
[2017-09-11 20:55] LABS: Urine Appearance Cloudy; Urine Color Yellow; Urine Nitrite Positive (NEGATIVE)
[2017-09-11 20:56] LABS: Urine Bacteria 2+; Urine RBC None Seen /hpf (0-5); Urine WBC >50 /hpf (0-5)
[2017-09-11] MEDS ORDERED: CEPHALEXIN MONOHYDRATE 250 MG CAPSULE PO ONE (21:21)
[2017-09-11] MEDS ORDERED: CEPHALEXIN MONOHYDRATE 250 MG CAPSULE ONE (21:27)
[2017-09-11 21:41] VITALS: BP 140/45
== END 2017-09-11 21:42 | disposition home or self-care (01) ==
LOC: ER 19:03
DX: E11.65 Type 2 diabetes mellitus with hyperglycemia (principal); Z79.4 Long term (current) use of insulin; N39.0 Urinary tract infection, site not specified; M19.90 Unspecified osteoarthritis, unspecified site; J44.9 Chronic obstructive pulmonary disease, unspecified; I10 Essential (primary) hypertension; E78.5 Hyperlipidemia, unspecified

== ENCOUNTER 2017-11-02 10:51 | Emergency (ER) | payer MEDICARE, BC ==
[2017-11-02 11:36] LABS: Hematocrit 32.2 % (37.0-47.0); Hemoglobin 10.1 gm/dL (12.5-16.0); Mean Cell Volume 103.5 fl (78-100); Mean Corpuscular Hemoglobin 32.5 pg (27-31); Mean Corpuscular Hgb Conc 31.4 g/dl (32-36); Mean Platelet Volume 8.5 fl (6.0-9.5); Neutrophil # 4.3 K/mm3 (1.3-6.0); Neutrophil % 62.9 % (42-75.0); Platelet Count 239 K/mm3 (150-450); Red Blood Count 3.11 M/mm3 (4.2-5.4); White Blood Count 6.8 K/mm3 (4.0-10.5)
[2017-11-02] MEDS ORDERED: FUROSEMIDE 10 MG/ML VIAL ONE (11:38)
[2017-11-02] MEDS ORDERED: FUROSEMIDE 10 MG/ML VIAL IV ONE (11:39)
--- NOTE | 2017-11-02 11:52 | ERNOTE ---
<Annabelle Gonzalez - Last Filed: 11/02/17 12:17> Dyspnea - Date Date of Service: 11/02/17 - General Presenting Symptoms: shortness of breath, difficulty of breathing, wheezing Time Seen by Provider: 11/02/17 10:57 Source: patient, family Exam Limitations: no limitations - Immun/Allergies/Home Medications Immunizations: IMMUNIZATION HX Immunizations Up to Date Yes History of Influenza Vaccine Yes Hx Pneumococcal Vaccination Yes Allergies/Adverse Reactions: Allergies Sulfa (Sulfonamide Antibiotics) Allergy (Verified 09/11/17 19:18) Home Medications: HOME MEDICATIONS Aspirin [Aspirin Enteric Coated] 81 mg PO DAILY 01/23/14 [Last Taken Unknown] Ca/D3/Mag Ox/Zinc/Human Resources Training Manager/Harinder/Bor [Caltrate 600+D Plus Tab Chew] 1 each PO DAILY [Last Taken Unknown] Cholecalciferol (Vitamin D3) [Vitamin D3] 2,000 unit PO DAILY 01/23/14 [Last Taken Unknown] Cyanocobalamin [Vitamin B-12] 3,000 mcg PO DAILY 01/23/14 [Last Taken Unknown] Escitalopram Oxalate [Lexapro] 10 mg PO DAILY 01/23/14 [Last Taken Unknown] Losartan Potassium 100 mg PO DAILY 01/23/14 [Last Taken Unknown] Albuterol Sulfate [Proventil Hfa] 6.7 gm IH BID 11/28/14 [Last Taken Unknown] Insulin NPH Human Isophane [Humulin N Kwikpen] 25 unit SQ QAM 11/28/14 [Last Taken Unknown] Insulin NPH Human Isophane [Humulin N Kwikpen] 45 unit SQ HS 11/28/14 [Last Taken Unknown] Multivitamin [Multi-Vitamin Daily] 1 each PO QDIPM 11/28/14 [Last Taken Unknown] Iron Aspgly,Ps/C/B12/FA/Ca/Suc [Ferrex 150 Forte Plus Capsule] 1 each PO BID [Last Taken Unknown] metFORMIN HCL [Glucophage] 500 mg PO BID 10/10/16 [Last Taken Unknown] Acetaminophen [Tylenol] 650 mg PO Q6H PRN #0 tablet 01/01/17 [Last Taken Unknown ] Atorvastatin Calcium [Lipitor] 40 mg PO ONCE 01/01/17 [Last Taken Unknown] Lactulose [Enulose] 15 ml PO BID 01/01/17 [Last Taken Unknown] Nortriptyline HCl [Pamelor] 10 mg PO HS 01/01/17 [Last Taken Unknown] Ondansetron [Zofran Odt] 4 mg PO Q6H PRN #20 tab 01/01/17 [Last Taken Unknown] Sennosides/Docusate Sodium [Senokot-S] 1 tab PO TID PRN #1 bottle 01/01/17 [ Last Taken Unknown] Zolpidem Tartrate 10 mg PO HS PRN 01/01/17 [Last Taken Unknown] amLODIPine BESYLATE [Norvasc] 5 mg PO HS 01/01/17 [Last Taken Unknown] traMADol HCL [Ultram] 50 mg PO Q6H PRN #25 tablet 01/01/17 [Last Taken Unknown] traZODone HCL [Desyrel] 100 mg PO HS 01/01/17 [Last Taken Unknown] Budesonide [Pulmicort] 1 mg IH BID #60 vial 11/02/17 [Last Taken Unknown] Cefuroxime Axetil [Ceftin] 250 mg PO Q12H #20 tab 11/02/17 [Last Taken Unknown] - History of Present Illness Narrative: Pt is an 87 year old female who presents with complaints of SOB that began this morning. Per her and her she usually wears 2L NC at home however this morning he was changing her tubing and she walked to the bathroom without her oxygen and became very SOB. She denies CP, diaphoresis, numbness/tingling, confusion, n/v/d, recent fever/chills or sick contacts. She does endorse recent swelling of her lower extremities and feels that she has been progressively getting worse over the past few days. She has a chronic cough with occasional white sputum production. Rest and elevating feet improve symptoms, activity exacerbates symptoms. She denies history of heart failure, endorses CKD and having "increased protein" in her urine. Upon arrival to the ER she is able to speak in full sentences, is mildly SOB with use of accessory muscles. On 2L NC she is 95%. Date (Duration): 11/02/17 Time (Timing): 10:30 Severity: moderate Treatment DIRECTOR EXECUTIVE COMMUNICATIONS: oxygen Initiating event: Reports: other - walking to bathroom without oxygen Frequency of episodes: Reports: occassional episodes Modifying Factors - (Improves): Reports: rest Modifying Factors (Worsens): Reports: activity Associated Symptoms-Dyspnea: Reports: cough, wheezing, ankle/leg swelling, weakness, anxiety. Denies: fever/chills, sweating, chest pain/discomfort, leg/ calf pain, dizziness, lightheadedness Review of Systems - Review of Systems Constitutional: Present: weakness, fatigue. Absent: recent illness, fever, diaphoresis EYE: Present: no symptoms reported ENT: Present: no symptoms reported Respiratory: Present: shortness of breath, cough, orthopnea, wheezing Cardiology: Present: edema. Absent: chest pain, palpitations, syncope Gastrointestinal/Abdominal: Absent: nausea, vomiting, diarrhea, constipation, abdominal pain Genitourinary: Present: frequency Musculoskeletal: Present: no symptoms reported Skin: Present: no symptoms reported Neurological: Present: anxiety, weakness. Absent: headache, dizziness/light- headedness, numbness, tingling Endocrine: Present: no symptoms reported Hematologic/Lymphatic: Present: no symptoms reported Psych: Present: anxiety - Patient's Past Medical History Patient History - Medical: Arthritis, Diabetes Type 2 Insulin Dependent, Obesity , Osteoarthritis, Renal Disease Patient History - Cardiac/Respiratory: COPD, Hypertension, Hyperlipidemia, Home O2 Use Patient History - Cancer: No Hx of Cancer Patient History - Surgical Procedures: Colonoscopy, Hysterectomy, Total Hip Replacement, Total Knee Replacement Patient History - Other: None LMP (females 10-50): Menopausal - Family History Mother Family History - Medical: , No pertinent hx Family History - Cardiac/Respiratory: Myocardial Infarction Family History - Cancer: No pertinent family hx Father Family History - Medical: , Diabetes Type 2 Insulin Dependent Family History - Cardiac/Respiratory: Myocardial Infarction Family History - Cancer: No pertinent family hx Brother Family History - Medical: , No pertinent hx Family History - Cardiac/Respiratory: No pertinent hx Family History - Cancer: Brain - Social History Living Situations: home Abuse History: No History of abuse Psych History: Hx of Anxiety Does anyone smoke in the home?: No Smoking Status: Never smoker Have you smoked in the past 12 months: No Do you dip or chew tobacco: No Alcohol Use: none Drug Use: none - Immunizations Immunizations Up to Date: Yes Hx Pneumococcal Vaccination: Yes History of Influenza Vaccine: Yes Physical Exam - Physical Exam General Appearance: Present: wd/wn, alert, mild distress, obese Head Exam: Present: normal inspection Eye Exam: Normal inspection: bilateral, PERRL: bilateral Ears, Nose, Throat: Present: normal ENT inspection Respiratory: Present: decreased breath sounds, expiration (prolonged), wheezing. Absent: normal breath sounds Cardiovascular/Chest: Present: regular rate, rhythm, normal peripheral pulses, systolic murmur Peripheral Pulses: N=norm/S=strong/W=weak/B=bound/A=absent: Dorsalis-pedis (R): Normal, Dorsalis-pedis (L): Normal Gastrointestinal/Abdominal: Present: normal bowel sounds, nontender, nondistended, soft, no organomegaly Extremity Exam: Present: normal except -, pedal edema, extremity edema Neurological Exam: Present: alert, oriented, normal mood/affect, no motor/ sensory deficits Skin Exam: Present: normal color, warm/dry ED Progress - Vital Signs Vital Signs: Vital Signs 11/02/17 11:07 Temperature 36.6 C Pulse Rate 69 Respiratory 16 Rate Blood Pressure 149/62 O2 Sat by Pulse 95 Oximetry - X-Ray X-Ray #1 X-Ray: chest - Progress/Reassessment Chief Complaint: Dyspnea Departure Clinical Impression: COPD exacerbation Diabetes Qualifiers: Diabetes mellitus type: type 2 Diabetes mellitus complication status: with kidney complications Diabetes mellitus complication detail: with chronic kidney disease Diabetes mellitus ad terminal makeup operator insulin use: with residential use Chronic kidney disease stage: stage 3 (moderate) Qualified Code(s): E11.22 - Type 2 diabetes mellitus with diabetic chronic kidney disease; N18.3 - Chronic kidney disease, stage 3 (moderate); N18.3 - Chronic kidney disease, stage 3 (moderate) ; Z79.4 - termite exterminator helper (current) use of insulin; Z79.4 - senior living (current) use of insulin; Z79.4 - termite exterminator helper (current) use of insulin; Z79.4 - termite exterminator helper ( current) use of insulin - Departure Disposition: Home self-care Condition: Good Instructions: Chronic Obstructive Pulmonary Disease Exacerbation, [id number] Additional Instructions: 1. Continue breathing treatments 4 times a day for 3 days, 3 times a day for 3 days and then a minimum of 2 times a day 2. You must use your oxygen at all times 3. Use your inhaled steroids as directed 4. Call family physician for an appointment Referrals: Dixie Rodarte DO [Staff Physician] - Prescriptions: Budesonide [Pulmicort] 1 mg IH BID #60 vial Cefuroxime Axetil [Ceftin] 250 mg PO Q12H #20 tab <Robson Myrick - Last Filed: 11/02/17 13:24> Dyspnea - Immun/Allergies/Home Medications Immunizations: IMMUNIZATION HX Immunizations Up to Date Yes History of Influenza Vaccine Yes Hx Pneumococcal Vaccination Yes ED Progress - Results and Orders Patient's Lab Results:: I have reviewed the patient's lab results. - Vital Signs Patient's Vital Signs:: I have reviewed the patient's vital signs. Vital Signs: Vital Signs 11/02/17 11/02/17 11/02/17 11:07 11:30 11:44 Temperature 36.6 C Pulse Rate 69 70 71 Respiratory 16 16 Rate Blood Pressure 149/62 140/47 138/59 O2 Sat by Pulse 95 96 Oximetry 11/02/17 11/02/17 11/02/17 11:52 12:05 12:25 Temperature Pulse Rate 70 65 70 Respiratory 14 16 13 Rate Blood Pressure 138/59 112/88 152/42 O2 Sat by Pulse 95 95 95 Oximetry 11/02/17 12:27 Temperature Pulse Rate 67 Respiratory 14 Rate Blood Pressure O2 Sat by Pulse 94 Oximetry - EKG EKG: NSR EKG read: Interp. by me - X-Ray X-Ray #1 Interpretation: Reviewed by me Plan - Plan Plan: Patient had considerable relief with the breathing treatment and I suspect she is having an exacerbation of her COPD. Patient was instructed to not move about the house without her oxygen as when that happens her oxygen level drops into the mid 80s. Given the underlying diabetes, despite giving her 60 mg of prednisone by mouth here in the emergency department, I am disinclined to give her any more oral steroids is that may interfere with her blood sugar. Patient will be started on antibiotics in the form of Ceftin, she'll be started on Symbicort for inhaled steroid and she will use her breathing machine at home 4 times a day for 2-3 days, 3 times a day for 2-3 days and then at least twice a day. She has lost her family physician so I will give her the name of Dr. Rodarte here at [facility] and she discharged in stable condition.
[2017-11-02 11:55] LABS: Troponin I 0.017 ng/ml (0.00-0.10)
[2017-11-02 11:57] LABS: Albumin * 3.1 gm/dl (3.4-5.0); Anion Gap 8.9 mmol/L (6.8-13.8); BUN/Creatinine Ratio 20.3 (9.0-21.6); Bilirubin, Total 0.3 mg/dL (0.0-1.1); Ca. Corrected For Albumin 9.7 mg/dL (8.4-10.2); Calcium * 9.3 mg/dL (7.9-10.9); Carbon Dioxide 37.5 mmol/L (24-32.6); Potassium 4.4 mmol/L (3.4-4.6); Total Protein 7.2 gm/dL (6.2-8.2)
[2017-11-02] MEDS ORDERED: ALBUTEROL SULFATE/IPRATROPIUM 3 ML NEBU IH ONE ×2 (12:07→12:17)
[2017-11-02 12:38] LABS: Urine Bilirubin Negative (NEGATIVE); Urine Blood 25 /ul (NEGATIVE); Urine Ketone Negative (NEGATIVE); Urine Protein Negative (NEGATIVE); Urine Urobilinogen Normal (NORMAL)
[2017-11-02 12:54] LABS: Urine Appearance Slightly Cloudy; Urine Bacteria 1+; Urine Color Pale Yellow; Urine Nitrite Positive (NEGATIVE); Urine WBC 0-5 /hpf (0-5)
[2017-11-02] MEDS ORDERED: predniSONE 20 MG TABLET PO ONE (13:00)
[2017-11-02] MEDS ORDERED: predniSONE 20 MG TABLET ONE (13:05)
[2017-11-02 13:21] VITALS: BP 147/56
== END 2017-11-02 13:40 | disposition home or self-care (01) ==
LOC: ER 10:51
PROC: 4A033R1 Measurement of Arterial Saturation, Peripheral, Percutaneous Approach (ICD-10-PCS; principal; 2017-11-02)
DX: J44.1 Chronic obstructive pulmonary disease with (acute) exacerbation (principal); E11.22 Type 2 diabetes mellitus with diabetic chronic kidney disease; N18.3 Chronic kidney disease, stage 3 (moderate); Z79.4 Long term (current) use of insulin; E78.5 Hyperlipidemia, unspecified; I10 Essential (primary) hypertension; Z99.81 Dependence on supplemental oxygen; F41.9 Anxiety disorder, unspecified; R53.1 Weakness